=== PATIENT | female | born 1965 | race Asian ===

== ENCOUNTER 2017-09-08 06:31 | Inpatient (IN) | payer MEDICAID, OTHER ==
[~2017-09-08] VITALS: Ht 152.4 cm; Wt 53.5 kg
[2017-09-08] MEDS ORDERED: SODIUM CHLORIDE 0.9% 1000ML 1,000 ML IV ONE ×2 (06:44→17:36)
[2017-09-08 07:01] LABS: BASOPHILS % (AUTO) 0.2 % (0.0-5.0); EOSINOPHILS % (AUTO) 1.9 % (0.0-8.0); HEMATOCRIT 33.6 % (36-48); LYMPHOCYTES % (AUTO) 14.7 % (21.0-51.0); MEAN CORPUSCULAR HEMOGLOBIN 28.1 pg (27.0-33.0); MEAN CORPUSCULAR HGB CONC 33.2 g/dL (32.0-36.0); MEAN CORPUSCULAR VOLUME 84.8 fL (79-99); MONOCYTES % (AUTO) 8.1 % (3.0-13.0); NEUTROPHILS % (AUTO) 75.1 % (40.0-77.0); PLATELET COUNT (AUTO) 302 K/uL (130-400); RED BLOOD CELL COUNT(AUTO) 3.97 MIL/uL (4.00-5.50); RED CELL DISTRIBUTION WIDTH 12.6 % (11.0-15.5); WHITE BLOOD COUNT (AUTO) 12.6 K/uL (4.8-10.8)
[2017-09-08 07:20] LABS: INR 0.89 (0.85-1.15); PARTIAL THROMBOPLASTIN TIME 34.8 SEC (26.3-35.5); PROTHROMBIN TIME 9.4 SEC (9.6-11.6)
[2017-09-08] MEDS ORDERED: ONDANSETRON HCL 4 MG/2 ML VIAL ONE (07:42)
[2017-09-08] MEDS ORDERED: KETOROLAC TROMETHAMINE 30MG/ML ONE (07:43)
[2017-09-08 08:16] LABS: ALANINE AMINOTRANSFERASE 16 U/L (12-78); ALBUMIN 2.1 g/dL (3.5-5.0); ASPARTATE AMINOTRANSFERASE 14 U/L (10-37); BILIRUBIN,TOTAL 0.3 mg/dL (0.2-1.0); CARBON DIOXIDE 25 mmol/L (21-32); CHLORIDE 96 mmol/L (101-111); CREATINE KINASE MB < 0.5 ng/mL (0.5-3.6); CREATINE KINASE, TOTAL 20 U/L (21-232); CREATININE 1.4 mg/dL (0.5-1.5); GLOMERULAR FILTR. RATE CALC 42 mL/min (>60); MYOGLOBIN 43 ng/mL (10-92); POTASSIUM 4.4 mmol/L (3.5-5.1); SODIUM SERUM 130 mmol/L (136-145); TOTAL PROTEIN, SERUM 7.5 g/dL (6.0-8.3); TROPONIN I < 0.04 ng/mL (0.00-0.06); UREA NITROGEN, BLOOD 29 mg/dL (7-18)
[2017-09-08 08:20] LABS: GLUCOSE,RANDOM 499 mg/dL (70-105)
[2017-09-08] MEDS ORDERED: INSULIN HUMULIN R 100 UNIT/ML 3ML ONE (08:31)
[2017-09-08 10:26] LABS: APPEARANCE,URINE Clear (CLEAR); BILIRUBIN,URINE Negative (NEGATIVE); COLOR,URINE Yellow (YELLOW); GLUCOSE, URINE (UA) >=1000 mg/dL (NEGATIVE); KETONES,URINE Negative (NEGATIVE); LEUKOCYTE ESTERASE ,URINE Small (NEGATIVE); NITRATE,URINE Negative (NEGATIVE); OCCULT BLOOD,URINE Negative (NEGATIVE); PH,URINE 5.5 (5.0-8.0); PROTEIN,URINE Trace (NEGATIVE); UROBILINOGEN,URINE 0.2 mg/dL (0.2-1.0)
[2017-09-08 10:35] LABS: BACTERIA,URINE Many /HPF (None Seen); RBC,URINE 0-1 /HPF (0-1)
[2017-09-08 10:36] LABS: SQUAMOUS EPITHELIAL CELL,UR Rare /LPF (0-2)
[2017-09-08] MEDS ORDERED: DEXTROSE 50%-WATER 50 ML DISP.SYRIN IV PRN (14:30)
[2017-09-08] MEDS ORDERED: GLUCAGON 1MG KIT 1 MG ML IM PRN (14:30)
[2017-09-08 15:18] VITALS: BP 105/62
[2017-09-08 16:24] VITALS: BP 114/60
[2017-09-08] MEDS: INSULIN HUMULIN R 100 UNIT/ML 3ML SQ SCH ×2 (17:07→21:00)
[2017-09-08] MEDS ORDERED: MORPHINE SULFATE 2 MG/ML 1ML SYG IVP PRN (17:30)
[2017-09-08 18:59] VITALS: BP 109/55
[2017-09-08] MEDS ORDERED: IBUPROFEN 800 MG TAB ONE (20:23)
[2017-09-08] MEDS: IBUPROFEN 400 MG TABLET PO PRN (20:24)
[2017-09-08 23:47] VITALS: BP 108/64
[2017-09-09] MEDS ORDERED: LISI-617 PO (01:38)
[2017-09-09] MEDS ORDERED: INSU300I SQ (01:38)
[2017-09-09] MEDS ORDERED: POTA99TA21 PO (01:38)
[2017-09-09] MEDS ORDERED: INSU100I26 SQ (01:38)
[2017-09-09] MEDS ORDERED: ATOR10TA69 PO (01:38)
[2017-09-09] MEDS ORDERED: CEPH500C2 PO (01:38)
[2017-09-09] MEDS ORDERED: FURO20TA4 PO (01:38)
[2017-09-09 02:59] VITALS: BP 105/59
[2017-09-09] MEDS ORDERED: SODIUM CHLORIDE 0.9% 1000ML 1,000 ML IV ONE (05:35)
[2017-09-09] MEDS: INSULIN HUMULIN R 100 UNIT/ML 3ML SQ SCH ×4 (06:18→20:40)
[2017-09-09 07:00] VITALS: BP 134/72
[2017-09-09] MEDS ORDERED: IBUPROFEN 800 MG TAB ONE (07:57)
[2017-09-09] MEDS ORDERED: LIDOCAINE HCL-MPF 1% 2ML VIAL IVP PRN (10:15)
[2017-09-09] MEDS ORDERED: POTASSIUM CHLORIDE 20 MEQ ERTAB PO PRN (10:15)
[2017-09-09] MEDS ORDERED: CEFTRIAXONE 1GM/D5W 50ML 50 ML IV SCH (10:15)
[2017-09-09] MEDS ORDERED: POTASSIUM CHLORIDE 20MEQ/100ML 100 ML IV PRN (10:15)
[2017-09-09] MEDS ORDERED: POTASSIUM CHLORIDE 10% ELIXIR 20 MEQ/15 ML UDCUP PO PRN (10:15)
[2017-09-09 10:40] LABS: HEMOGLOBIN A1C 15.8 % (4.0-6.0)
[2017-09-09] MEDS: CEFTRIAXONE SODIUM 1 GM IVP SCH (10:44)
[2017-09-09 11:00] VITALS: BP 99/54
[2017-09-09 16:00] VITALS: BP 125/75
[2017-09-09] MEDS: IBUPROFEN 400 MG TABLET PO PRN ×2 (16:56→23:50)
[2017-09-09 19:09] VITALS: BP 120/58
[2017-09-09] MEDS ORDERED: ATORVASTATIN CALCIUM 10 MG TABLET PO SCH (21:00)
[2017-09-09 23:16] VITALS: BP 139/76
[2017-09-10 03:20] VITALS: BP 128/76
[2017-09-10] MEDS: INSULIN HUMULIN R 100 UNIT/ML 3ML SQ SCH ×2 (06:47→11:30)
[2017-09-10 07:00] VITALS: BP 138/78
[2017-09-10] MEDS ORDERED: FUROSEMIDE 20 MG TABLET PO SCH (09:00)
[2017-09-10] MEDS ORDERED: LISINOPRIL 5 MG TABLET PO SCH (09:00)
[2017-09-10] MEDS: CEFTRIAXONE SODIUM 1 GM IVP SCH (11:26)
[2017-09-10] MEDS ORDERED: CEFD300C3 PO (13:18)
== END 2017-09-10 13:40 | disposition home or self-care (01) | DRG 463 ==
LOC: EDBD 06:31 → EDH 06:31 → EDHIP 06:32 → 2AH 14:43 → 3BH 09-09 14:05
PROVIDERS: ADMIT Family Medicine; ATTEND Family Medicine
DX: N39.0 Urinary tract infection, site not specified (principal); E11.65 Type 2 diabetes mellitus with hyperglycemia; E87.0 Hyperosmolality and hypernatremia; E78.00 Pure hypercholesterolemia, unspecified; E78.5 Hyperlipidemia, unspecified; E87.6 Hypokalemia; E44.1 Mild protein-calorie malnutrition
CPT/HCPCS: 36415; 71045; 76700; 80053; 81001; 82009; 82550; 82553; 82948; 83036; 83605; 83690; 83874; 84132; 84484; 85025; 85610; 85730; 87040; 87088; 87186; 87804; 93005; A4218; J0696; J1815; J1885; J2405; J7030